=== PATIENT | female | born 1950 | race Hispanic/Latino ===

== ENCOUNTER 2017-07-30 07:20 | Outpatient (CLI) | payer MEDICARE, OTHER ==
--- NOTE | 2017-07-30 08:29 | Fluoroscopy Report ---
Barium swallow: History: Dysphasia with both solids and liquids. Thyroidectomy in 2013 with no interval change in symptoms. The patient was able swallow liquid barium without difficulty. There is normal distention of the cervical and thoracic esophagus. No filling defects identified. No hiatus hernia and no reflux demonstrated. The patient was also able to swallow a 13 mm tablet with rapid passage through the esophagus into the stomach. The patient did however indicate a sensation of the tablet being caught in her cervical region despite the tablet being in her stomach at that time. Impression: No anatomic pathology.
--- NOTE | 2017-07-30 08:55 | Ultrasound Report ---
Thyroid ultrasound: Dysphasia with thyroidectomy. Imaging of the thyroid gland and neck tissues fails to identify any thyroid tissue on the patient's left side. On the right side a small amount of normal appearing thyroid tissue is identified measuring approximately 5 x 7 x 13 mm. The findings otherwise appear generally unremarkable. Impression: Small right thyroid gland/residual. Total left thyroidectomy.
== END 2017-07-30 07:21 | disposition home or self-care (01) ==
LOC: FLUORO 07:20
PROVIDERS: ATTEND Otolaryngology
DX: K22.8 Other specified diseases of esophagus (principal); R13.10 Dysphagia, unspecified; Z90.89 Acquired absence of other organs
CPT/HCPCS: 74220; 76536

== ENCOUNTER 2018-10-03 10:09 | Outpatient (CLI) | payer MEDICARE, OTHER ==
--- NOTE | 2018-10-03 11:19 | Mammography Report ---
Bilateral mammogram: Compared to 08/13/13. CAD study utilized. Findings: Bilateral dense breast parenchyma. Focal 5 mm new asymmetry in mid left breast. No microcalcification. Normal axilla. Impression: Focal linear asymmetry left breast. Recommend spot compression and sonographic examination. BI-RADS CATEGORY: 0 = Needs additional imaging evaluation ACR BI-RADS MAMMOGRAPHIC CODES: 0 = Needs additional imaging evaluation; 1 = Negative; 2 = Benign; 3 = Probably benign; 4 = Suspicious; 5 = Malignant; 6 = Known biopsy-proven malignancy COMMENT: 1. Dense breast tissue, i.e., adenosis, fibrocystic changes, etc., may obscure an underlying neoplasm. 2. Approximately 10% of cancers are not detected with mammography. 3. A negative mammography report should not delay biopsy if a clinically suspicious mass is present. COMMENT: Patient follow-up letters are generated in [employer].
--- NOTE | 2018-10-03 11:25 | Mammography Report ---
BONE DENSITY STUDY: DEFINITIONS: BMD = Bone Mineral Density T-score = BMD related to mean peak bone mass of young adult (mean expressed in Standard Deviation) Z-score = Age matched BMD expressed in SD World Health Organization (WHO) Diagnostic Criteria Normal T-score > -1 SD Osteopenia T-score between -1 and -2.4 SD Osteoporosis T-score -2.5 SD or below FINDINGS: The weighted average BMD of lumbar spine L1-L4 is 0.883 with a T-score of -1.5. The weighted average BMD of forearm is 0.4-6 with a T-score of -2.7. IMPRESSION: The patient's T-score is diagnostic for osteoporosis and high relative risk for fracture. NOTE: BMD is not the only risk factor for fracture; also consider factors such as the patient's age, risk of falling, previous osteoporotic fracture, family history of osteoporotic fractures, current smoker, and low body weight. Uriarte's triangle is a region of interest in femur, predominantly of trabecular bone. It is not a true anatomic site, and ISCD does not recommend its use clinically.
== END 2018-10-03 10:10 | disposition home or self-care (01) ==
LOC: MAMMO 10:09
PROVIDERS: ATTEND Family Medicine
DX: Z12.31 Encounter for screening mammogram for malignant neoplasm of breast (principal); M81.0 Age-related osteoporosis without current pathological fracture; J44.9 Chronic obstructive pulmonary disease, unspecified; M19.90 Unspecified osteoarthritis, unspecified site; Z87.891 Personal history of nicotine dependence; Z90.710 Acquired absence of both cervix and uterus
CPT/HCPCS: 77067; 77080

== ENCOUNTER 2018-10-10 15:33 | Emergency (ER) | payer MEDICARE, OTHER ==
[2018-10-10 15:48] VITALS: BP 133/49
--- NOTE | 2018-10-10 15:48 | Emergency Department Report ---
Blank Doc - Documentation Documentation: 68-year-old female that presents with left leg pain x2 days. Patient stated was sent by urgent care to r/o DVT. Describes pain 7/10 from calf area to ankle. Denies trauma. Will ordered doppler US to r/o DVT PMH includes COPD Sent to [facility] for further evaluation and treatment
--- NOTE | 2018-10-10 17:58 | Emergency Department Report ---
ED Lower Extremity HPI - General Chief Complaint: Extremity Injury, Lower Stated Complaint: LFT LEG PAIN Time Seen by Provider: 10/10/18 15:44 Source: patient Mode of arrival: Ambulatory Limitations: No Limitations - History of Present Illness Initial Comments: Patient is a 68-year-old female who is sent to the ER for evaluation for possible DVT, from an urgent care. Patient has no history of blood clot she is very active for her age. She is on no hormones. She hydrates well. She is here into into her health. Patient describes the pain she is having as intermittent sharp pain shooting up the left calf. However she is ambulatory. There is no shortness of breath no tachycardia or hypoxia. -: days(s) Injury: Leg: Right Place: home Severity: mild Improves With: nothing Worsens With: nothing - Related Data Home Medications Medication Instructions Recorded Confirmed Last Taken Calcium Carbonate [ Calcium 1.25 gm PO BID 09/12/13 05/19/14 05/19/14 Elemental 600 mg] Cholecalciferol (Vitamin D3) 2,000 unit PO BID 09/12/13 05/19/14 05/19/14 [Vitamin D] Tiotropium [Spiriva] 18 mcg IH QDAY 09/12/13 05/19/14 05/19/14 Levothyroxine [Synthroid] 125 mcg PO QAM 05/19/14 05/19/14 05/19/14 Pregabalin [Lyrica] 100 mg PO BID 05/19/14 05/19/14 05/19/14 Previous Rx's Medication Instructions Recorded Last Taken Type Albuterol Sulfate [Albuterol 0.63% 0.63 mg IH Q4HR PRN #2 ml 11/18/15 Unknown Rx NEBS] Ipratropium [place] [Atrovent Hfa] 12.9 gm IH Q4HR #2 hfa.aer.ad 11/18/15 Unknown Rx Albuterol Sulfate [Proair 90 mcg IH Q4HR PRN #2 aer.[email or web address] 04/06/16 Unknown Rx Respiclick] Allergies Allergy/AdvReac Type Severity Reaction Status Date / Time No Known Allergies Allergy Verified 09/12/13 08:14 ED Review of Systems ROS: Stated complaint: LFT LEG PAIN Other details as noted in HPI Comment: All other systems reviewed and negative Constitutional: denies: see HPI Eyes: denies: eye pain ENT: denies: ear pain Respiratory: denies: cough Cardiovascular: denies: palpitations Endocrine: denies: intolerance to cold Gastrointestinal: denies: nausea Genitourinary: denies: dysuria Musculoskeletal: other (LLE). denies: back pain Skin: denies: lesions Neurological: denies: headache Psychiatric: denies: depression Hematological/Lymphatic: denies: easy bleeding ED Past Medical Hx - Past Medical History Hx Hypertension: No Hx CVA: No Hx Diabetes: No Hx Renal Disease: No Hx Arthritis: Yes Hx Seizures: No Hx Asthma: No Hx COPD: Yes (2l/O2- on home) Additional medical history: Right pneumothorax-2009, thyroid goiter,diverticulitis,tinnitis,severe back DJD with bulging disc. DJD, Herpes 2,sinusitis. Carpa Tunnel. ulnar nerve damage. high cholestrol - Surgical History Past Surgical History?: Yes Hx Pacemaker: No Additional Surgical History: right hip/knee replacement,ulnar nerve damage,Bunionectomy bilateral,right wrist Fx,right Knee. left shouder-rotator cuff repair,bilateral hip replacement,septoplasty with valve replacement and turbinate reductions,bilateral cataract surgery. thyrodectomy - Family History Family history: no significant - Social History Smoking Status: Former Smoker Substance Use Type: None - Medications Home Medications: Home Medications Medication Instructions Recorded Confirmed Last Taken Type Calcium Carbonate [ Calcium 1.25 gm PO BID 09/12/13 05/19/14 05/19/14 History Elemental 600 mg] Cholecalciferol (Vitamin D3) 2,000 unit PO BID 09/12/13 05/19/14 05/19/14 History [Vitamin D] Tiotropium [Spiriva] 18 mcg IH QDAY 09/12/13 05/19/14 05/19/14 History Levothyroxine [Synthroid] 125 mcg PO QAM 05/19/14 05/19/14 05/19/14 History Pregabalin [Lyrica] 100 mg PO BID 05/19/14 05/19/14 05/19/14 History Albuterol Sulfate [Albuterol 0.63% 0.63 mg IH Q4HR PRN #2 ml 11/18/15 Unknown Rx NEBS] Ipratropium [place] [Atrovent Hfa] 12.9 gm IH Q4HR #2 hfa.aer.ad 11/18/15 Unknown Rx Albuterol Sulfate [Proair 90 mcg IH Q4HR PRN #2 aer.pow.ba 04/06/16 Unknown Rx Respiclick] ED Physical Exam - General Limitations: No Limitations General appearance: alert - Head Head exam: Present: atraumatic - Eye Eye exam: Present: normal appearance, PERRL - ENT ENT exam: Present: normal exam, mucous membranes moist - Neck Neck exam: Present: normal inspection - Respiratory Respiratory exam: Present: normal lung sounds bilaterally - Cardiovascular Cardiovascular Exam: Present: regular rate - GI/Abdominal GI/Abdominal exam: Present: soft, normal bowel sounds - Rectal Rectal exam: Present: deferred - Extremities Exam Extremities exam: Present: normal inspection - Back Exam Back exam: Present: normal inspection, full ROM - Neurological Exam Neurological exam: Present: alert, oriented X3 - Psychiatric Psychiatric exam: Present: normal affect, normal mood - Skin Skin exam: Present: warm, dry, intact ED Course Vital Signs 10/10/18 15:46 Temperature 97.8 F Pulse Rate 87 Respiratory 20 Rate Blood Pressure 133/49 O2 Sat by Pulse 93 Oximetry - Reevaluation(s) Reevaluation #1: 10/10/18 18:41 On exam patient has no swelling of the leg. There is no cellulitis. She has a +2 DP bilaterally. Rapid cap refill. And a negative Homans sign. ED Lower Extremity MDM - Radiology Data Radiology results: report reviewed, image reviewed - Medical Decision Making 1829 YARELIS has been called and they're running behind we are still waiting on her ultrasound report patient getting restless and upset - Differential Diagnosis RO DVT Critical care attestation.: If time is entered above; I have spent that time in minutes in the direct care of this critically ill patient, excluding procedure time. ED Disposition Clinical Impression: Leg pain, left Disposition: - TO HOME OR SELFCARE Is pt being admited?: No Does the pt Need Aspirin: No Condition: Stable Additional Instructions: ULTRASOUND NEG FOR DVT FOLLOW UP WITH PCP SUNDAY IF PERSISTS Referrals: KEITH SHEIKH DO [Staff Physician] - 3-5 Days Time of Disposition: 17:57
--- NOTE | 2018-10-10 18:42 | Vascular Lab Report ---
FINAL REPORT PROCEDURE: US DOPPLER VENOUS LOWER EXTREMITY UNILATERAL TECHNIQUE: Duplex Doppler ultrasound of the LEFT common and superficial femoral, popliteal, posterio r tibial, and proximal deep femoral and greater saphenous veins was attempted. Patterson scale imaging wit h and without compression, spectral waveform analysis with and without augmentation, and color flow D oppler were employed. HISTORY: LT.LEG SWELLING. Evaluate DVT. COMPARISON: No prior studies are available for comparison. FINDINGS: Deep Venous Thrombus: None . Superficial Venous Thrombus: None . Venous valvular incompetence: None . Soft tissue abnormality: None . Other: None . IMPRESSION: No evidence of deep venous thrombosis
== END 2018-10-10 18:59 | disposition home or self-care (01) ==
LOC: ED 15:33
DX: M79.605 Pain in left leg (principal)

== ENCOUNTER 2018-11-11 09:50 | Outpatient (CLI) | payer MEDICARE, OTHER ==
--- NOTE | 2018-11-11 10:40 | Mammography Report ---
LEFT DIGITAL DIAGNOSTIC MAMMOGRAM : 11/11/18 09:50:00 CLINICAL: Recalled for asymmetry. COMPARISON:10/03/18 screening FINDINGS: Additional mammographic views were performed and are negative. IMPRESSION: Negative Mammogram. BI-RADS CATEGORY: 1 -- Negative RECOMMENDATION: Routine mammographic screening in one year. ACR BI-RADS MAMMOGRAPHIC CODES: 0 = Needs additional imaging evaluation; 1 = Negative; 2 = Benign; 3 = Probably benign; 4 = Suspicious; 5 = Malignant; 6 = Known biopsy-proven malignancy COMMENT: 1. Dense breast tissue, i.e., adenosis, fibrocystic changes, etc., may obscure an underlying neoplasm. 2. Approximately 10% of cancers are not detected with mammography. 3. A negative mammography report should not delay biopsy if a clinically suspicious mass is present. COMMENT: Patient follow-up letters are generated via our [employer] application.
== END 2018-11-11 09:51 | disposition home or self-care (01) ==
LOC: MAMMO 09:50
PROVIDERS: ATTEND Family Medicine
DX: R92.8 Other abnormal and inconclusive findings on diagnostic imaging of breast (principal); J44.9 Chronic obstructive pulmonary disease, unspecified; Z90.710 Acquired absence of both cervix and uterus; Z87.891 Personal history of nicotine dependence

== ENCOUNTER 2019-10-08 08:26 | Outpatient (CLI) | payer MEDICARE, OTHER ==
--- NOTE | 2019-10-08 11:01 | Mammography Report ---
DIGITAL SCREENING MAMMOGRAM WITH CAD, 10/08/2019 INDICATION: Routine screening mammography. TECHNIQUE: Digital bilateral 2D mammography was obtained in the craniocaudal and mediolateral obliq ue projections. This examination was interpreted with the benefit of Computer-Aided Detection analysi s. COMPARISON: 10/03/2018 FINDINGS: Breast Density: The breasts are heterogeneously dense, which may obscure small masses. There is no evidence of dominant mass, suspicious calcifications or architectural distortion in eithe r breast. IMPRESSION: No mammographic evidence of malignancy. Follow up recommendation: Routine yearly BI-RADS Category 1: Negative. A "normal" or negative report should not discourage follow up or biopsy of a clinically significant f inding. A written summary of these findings will be mailed to the patient. The patient will be entered into a mammography reporting system which will generate a reminder letter for the patient's next appointmen t at the appropriate interval. The [employer] recommends yearly mammograms starting at age 40 and continuing as l josafat as a woman is in good health. Breast MRI is recommended for women with an approximate 20-25% or greater lifetime risk of breast cancer, including women with a strong family history of breast or ova clarisa cancer or who have been treated for Hodgkin's disease. Signer Name: Jorge Alberto Randhawa MD Signed: 10/08/2019 10:56 AM Workstation Name: [id number]
== END 2019-10-08 08:27 | disposition home or self-care (01) ==
LOC: SPVWC 08:26
PROVIDERS: ATTEND Family Medicine
DX: Z12.31 Encounter for screening mammogram for malignant neoplasm of breast (principal)
CPT/HCPCS: 77067

== ENCOUNTER 2020-10-20 08:50 | Outpatient (CLI) | payer MEDICARE, OTHER ==
--- NOTE | 2020-10-20 11:10 | Mammography Report ---
DIGITAL SCREENING MAMMOGRAM WITH CAD, 10/20/2020 CLINICAL INFORMATION / INDICATION: Routine screening mammography. SCREENING MAMMO TECHNIQUE: Digital bilateral 2D mammography was obtained in the craniocaudal and mediolateral obliqu e projections. This examination was interpreted with the benefit of Computer-Aided Detection analysis . COMPARISON: 10/08/2019, 10/03/2018 FINDINGS: Breast Density: The breasts are extremely dense, which lowers the sensitivity of mammography. No dominant mass, suspicious calcifications, or architectural distortion in either breast. IMPRESSION: No mammographic evidence of malignancy. Follow up recommendation: Routine yearly BI-RADS Category 1: Negative. A "normal" or negative report should not discourage follow up or biopsy of a clinically significant f inding. A written summary of these findings will be mailed to the patient. The patient will be entered into a mammography reporting system which will generate a reminder letter for the patient's next appointmen t at the appropriate interval. The [employer] recommends yearly mammograms starting at age 40 and continuing as l josafat as a woman is in good health. Breast MRI is recommended for women with an approximate 20-25% or greater lifetime risk of breast cancer, including women with a strong family history of breast or ova clarisa cancer or who have been treated for Hodgkin's disease. Signer Name: Jr Marquis MD Signed: 10/20/2020 11:06 AM Workstation Name: [email or web address]
== END 2020-10-20 08:51 | disposition home or self-care (01) ==
LOC: SPVWC 08:50
PROVIDERS: ATTEND Family Medicine
DX: Z12.31 Encounter for screening mammogram for malignant neoplasm of breast (principal)
CPT/HCPCS: 77067

== ENCOUNTER 2021-11-02 13:41 | Outpatient (CLI) | payer MEDICARE, OTHER ==
--- NOTE | 2021-11-03 18:35 | Mammography Report ---
DIGITAL SCREENING MAMMOGRAM WITH CAD, 11/02/2021 CLINICAL INFORMATION / INDICATION: Routine screening mammography. TECHNIQUE: Digital bilateral 2D mammography was obtained in the craniocaudal and mediolateral obliqu e projections. This examination was interpreted with the benefit of Computer-Aided Detection analysis . COMPARISON: 10/20/2020, 10/08/2019 FINDINGS: Breast Density: The breasts are extremely dense, which lowers the sensitivity of mammography. No dominant mass, suspicious calcifications, or architectural distortion in either breast. No interval change. IMPRESSION: No mammographic evidence of malignancy. Follow up recommendation: Routine yearly BI-RADS Category 1: NEGATIVE A "normal" or negative report should not discourage follow up or biopsy of a clinically significant f inding. A written summary of these findings will be mailed to the patient. The patient will be entered into a mammography reporting system which will generate a reminder letter for the patient's next appointmen t at the appropriate interval. The [employer] recommends yearly mammograms starting at age 40 and continuing as l josafat as a woman is in good health. Breast MRI is recommended for women with an approximate 20-25% or greater lifetime risk of breast cancer, including women with a strong family history of breast or ova clarisa cancer or who have been treated for Hodgkin's disease. Signer Name: Jacqueline Reese MD Signed: 11/03/2021 6:31 PM Workstation Name: [email or web address]
== END 2021-11-02 13:42 | disposition home or self-care (01) ==
LOC: SPVWC 13:41
PROVIDERS: ATTEND Internal Medicine
DX: Z12.31 Encounter for screening mammogram for malignant neoplasm of breast (principal)
CPT/HCPCS: 77067